=== PATIENT | female | born 1995 | race Caucasian/White ===

== ENCOUNTER 2017-12-09 20:50 | Emergency (ER) | payer OTHER, BC ==
[2017-12-09 22:12] VITALS: BP 120/75
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
[2017-12-09] MEDS ORDERED: BIRTH CONTROL (22:25)
[2017-12-10] MEDS ORDERED: APAP/HYDROCODONE 325/5 TAB PO ONE (00:15)
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
[2017-12-10] MEDS ORDERED: ACET/HYDROC 5/325MG TH ER ONLY 2 TAB/BOTTLE PO ONE (00:45)
== END 2017-12-10 01:00 | disposition home or self-care (01) ==
LOC: ER 22:18
DX: S16.1XXA Strain of muscle, fascia and tendon at neck level, initial encounter (principal); R51 Headache; V87.7XXA Person injured in collision between other specified motor vehicles (traffic), initial encounter
CPT/HCPCS: 70450; 72125; 99284